=== PATIENT | male | born 1975 | race Caucasian/White ===

== ENCOUNTER → 2023-08-27 15:32 | Outpatient (REF) | payer OTHER, SELFPAY | LOC: RCS 15:32 | PROVIDERS: ATTENDING PHYSICIAN Physician Assistant Medical | DX: I51.9 Heart disease, unspecified (principal) | CPT/HCPCS: 93306 ==

== ENCOUNTER 2025-04-24 06:27 | Outpatient (RCR) | payer OTHER, SELFPAY | END 2025-04-24 23:59 | disposition home or self-care (01) | LOC: RPT 06:27 | PROVIDERS: ATTENDING PHYSICIAN Physician Assistant Medical | DX: M54.12 Radiculopathy, cervical region (principal); Z73.6 Limitation of activities due to disability | CPT/HCPCS: 97110; 97162 ==